=== PATIENT | male | born 1995 | race Caucasian/White ===

== ENCOUNTER 2019-11-07 08:58 | Emergency (ER) | payer OTHER ==
[~2019-11-07] VITALS: Ht 160 cm; Wt 68.0 kg
[2019-11-07] MEDS ORDERED: MULTIVITAMIN with MINERAL TABLET. PO ONE (09:15)
[2019-11-07] MEDS ORDERED: chlordiazePOXIDE HCL 25 MG CAPSULE PO ONE (09:15)
[2019-11-07] MEDS ORDERED: THIAMINE 100 MG TABLET. PO ONE (09:15)
[2019-11-07] MEDS ORDERED: FOLIC ACID 1 MG TABLET PO ONE (09:15)
[2019-11-07] MEDS ORDERED: MVI, ADULT NO.4 WITH VIT K 10 ML, THIAMINE INJ 100 MG, FOLIC ACID INJ 1 MG in IV NORMAL... IV ONE ×4 (09:30)
[2019-11-07 09:45] LABS: BASO # 0.1 x10^3/uL (0.0-0.2); BASO % 1 % (0-3); EOS % 0 % (0-3); HEMATOCRIT 45.9 % (39.0-53.0); HEMOGLOBIN 15.6 g/dL (13.0-17.5); LYMPH # 2.1 x10^3/uL (1.0-4.8); LYMPH % 27 % (24-48); MEAN CORPUSCULAR HEMOGLOBIN 32 pg (25-35); MEAN CORPUSCULAR HGB CONC 34 g/dL (31-37); MEAN CORPUSCULAR VOLUME 94 fL (79-100); MONO # 0.6 x10^3/uL (0.0-1.1); MONO % 7 % (0-9); NEUT # 4.9 x10^3uL (1.8-7.7); NEUT % 64 % (31-73); PLATELET COUNT 206 x10^3/uL (140-400); RED CELL DISTRIBUTION WIDTH 16.4 % (11.5-14.5); WHITE BLOOD COUNT 7.6 x10^3/uL (4.0-11.0)
[2019-11-07 09:53] LABS: CALCIUM 8.4 mg/dL (8.5-10.1); GFR 90.3; POTASSIUM 3.5 mmol/L (3.5-5.1)
[2019-11-07 09:58] LABS: ALBUMIN 3.9 g/dL (3.4-5.0); DIRECT BILIRUBIN 0.1 mg/dL (0.0-0.2); MAGNESIUM 1.8 mg/dL (1.8-2.4); TOTAL BILIRUBIN 0.4 mg/dL (0.2-1.0); TOTAL PROTEIN 8.4 g/dL (6.4-8.2)
[2019-11-07 12:00] VITALS: BP 139/67
[2019-11-07 12:29] LABS: BARBITURATES NEG (NEG); BENZODIAZEPINES NEG (NEG); CANNABINOIDS POS (NEG); COCAINE POS (NEG); METHADONE NEG (NEG); OPIATES NEG (NEG); PHENCYCLIDINE NEG (NEG)
[2019-11-07 12:31] LABS: AMPHETAMINE/METHAMPHETAMINE NEG (NEG)
[2019-11-07 12:35] LABS: BACTERIA,URINE 0 /HPF (0-FEW); BILIRUBIN,URINE NEG (NEG); CLARITY,URINE CLEAR; COLOR,URINE YELLOW; GLUCOSE,URINE NEG (NEG); NITRITE,URINE NEG (NEG); RBC,URINE OCC /HPF (0-2); UROBILINOGEN,URINE 0.2 mg/dL (0.2 mg/dL); WBC,URINE OCC /HPF (0-4)
[2019-11-07 12:36] LABS: HYALINE CASTS, URINE FEW /HPF
[2019-11-07] MEDS ORDERED: CHLO25CA9 PO (12:51)
--- NOTE | 2019-11-07 12:51 | PHYS DOC ---
Past History Past Medical History: Other Additional Past Medical Histor: alcoholism Alcohol Use: Heavy General Adult EDM: Chief Complaint: WITHDRAWAL HPI: HPI: Patient is a 24-year-old male who presents with complaint of symptoms of alcohol withdrawal. Patient states that he has been trying to stop drinking alcohol but is having symptoms of withdrawal. He states that he is not able to sleep due to the symptoms. Patient denies any suicidal or homicidal ideations. Patient sta georgina that he just needs some help getting off of the alcohol. [] Review of Systems: Review of Systems: Constitutional: Denies fever or chills Respiratory: Denies cough or shortness of breath Cardiovascular: Denies chest pain or edema GI: Denies abdominal pain. Complains of nausea without vomiting or diarrhea Integument: Denies rash Neurologic: Denies headache, focal weakness or sensory changes A full 10 point review of systems has been reviewed and is otherwise negative. Heart Score: Risk Factors: Risk Factors: DM, Current or recent (<one month) smoker, HTN, HLP, family history of CAD, obesity. Risk Scores: Score 0 - 3: 2.5% MACE over next 6 weeks - Discharge Home Score 4 - 6: 20.3% MACE over next 6 weeks - Admit for Clinical Observation Score 7 - 10: 72.7% MACE over next 6 weeks - Early Invasive Strategies Current Medications: Current Meds: Current Medications Medications (Trade) Dose Ordered Sig/Alec Start Time Stop Time Status Last Admin Dose Admin Chlordiazepoxide (Librium) 25 mg 1X ONCE 11/07/19 09:15 11/07/19 09:21 DC 11/07/19 09:24 25 MG Folic Acid (Folic Acid) 1 mg 1X ONCE 11/07/19 09:15 11/07/19 09:26 DC Multivitamins/ Calcium (Thera-M Plus) 1 tab 1X ONCE 11/07/19 09:15 11/07/19 09:26 DC Multivitamins/ Minerals 10 ml/ Thiamine HCl 100 mg/Folic Acid 1 mg/Sodium Chloride 1,011.2 ml @ 100 mls/ hr 1X ONCE 11/07/19 09:30 11/07/19 19:36 11/07/19 09:30 100 MLS/HR Thiamine HCl (Vitamin B-1) 100 mg 1X ONCE 11/07/19 09:15 11/07/19 09:26 DC Allergies: Allergies: Allergies Coded Allergies Type Severity Reaction Last Updated Verified Penicillins Allergy Unknown 11/07/19 Yes amoxicillin Allergy Unknown 11/07/19 Yes Physical Exam: PE: Constitutional: Well developed, well nourished, no acute distress, non-toxic appearance. [] HENT: Normocephalic, atraumatic, bilateral external ears normal, oropharynx moist, no oral exudates, nose normal. [] Eyes: PERRLA, EOMI, conjunctiva normal, no discharge. [] Neck: Normal range of motion, no tenderness, supple. [] Cardiovascular: Regular rate and rhythm [] Lungs & Thorax: Bilateral breath sounds clear to auscultation [] Abdomen: Bowel sounds normal, soft, no tenderness. [] Skin: Warm, dry, no erythema, no rash. [] Extremities: No tenderness, no cyanosis, no clubbing, ROM intact. [] Neurologic: Alert and oriented X 3, no focal deficits noted. [] Current Patient Data: Labs: Laboratory Tests Test 11/07/19 09:17 11/07/19 12:05 White Blood Count 7.6 x10^3/uL (4.0-11.0) Red Blood Count 4.90 x10^6/uL (4.30-5.70) Hemoglobin 15.6 g/dL (13.0-17.5) Hematocrit 45.9 % (39.0-53.0) Mean Corpuscular Volume 94 fL (79-100) Mean Corpuscular Hemoglobin 32 pg (25-35) Mean Corpuscular Hemoglobin Concent 34 g/dL (31-37) Red Cell Distribution Width 16.4 % (11.5-14.5) H Platelet Count 206 x10^3/uL (140-400) Neutrophils (%) (Auto) 64 % (31-73) Lymphocytes (%) (Auto) 27 % (24-48) Monocytes (%) (Auto) 7 % (0-9) Eosinophils (%) (Auto) 0 % (0-3) Basophils (%) (Auto) 1 % (0-3) Neutrophils # (Auto) 4.9 x10^3uL (1.8-7.7) Lymphocytes # (Auto) 2.1 x10^3/uL (1.0-4.8) Monocytes # (Auto) 0.6 x10^3/uL (0.0-1.1) Eosinophils # (Auto) 0.0 x10^3/uL (0.0-0.7) Basophils # (Auto) 0.1 x10^3/uL (0.0-0.2) Sodium Level 136 mmol/L (136-145) Potassium Level 3.5 mmol/L (3.5-5.1) Chloride Level 95 mmol/L (98-107) L Carbon Dioxide Level 22 mmol/L (21-32) Anion Gap 19 (6-14) H Blood Urea Nitrogen 16 mg/dL (8-26) Creatinine 1.0 mg/dL (0.7-1.3) Estimated GFR (Cockcroft-Gault) 90.3 Glucose Level 133 mg/dL (70-99) H Calcium Level 8.4 mg/dL (8.5-10.1) L Magnesium Level 1.8 mg/dL (1.8-2.4) Total Bilirubin 0.4 mg/dL (0.2-1.0) Direct Bilirubin 0.1 mg/dL (0.0-0.2) Aspartate Amino Transferase (AST) 326 U/L (15-37) H Alanine Aminotransferase (ALT) 204 U/L (16-63) H Alkaline Phosphatase 121 U/L (46-116) H Total Protein 8.4 g/dL (6.4-8.2) H Albumin 3.9 g/dL (3.4-5.0) Ethyl Alcohol Level 173 mg/dL (0-10) H Urine Collection Type Unknown Urine Color Yellow Urine Clarity Clear Urine pH 6.5 Urine Specific [place] 1.025 Urine Protein 100 mg/dl (NEG-TRACE) Urine Glucose (UA) Neg mg/dL (NEG) Urine Ketones (Stick) 80 mg/dL (NEG) Urine Blood Mod (NEG) Urine Nitrite Neg (NEG) Urine Bilirubin Neg (NEG) Urine Urobilinogen Dipstick 0.2 mg/dL (0.2 mg/dL) Urine Leukocyte Esterase Neg (NEG) Urine RBC Occ /HPF (0-2) Urine WBC Occ /HPF (0-4) Urine Bacteria 0 /HPF (0-FEW) Urine Hyaline Casts Few /HPF Urine Mucus Mod /LPF Urine Opiates Screen Neg (NEG) Urine Methadone Screen Neg (NEG) Urine Barbiturates Neg (NEG) Urine Phencyclidine Screen Neg (NEG) Urine Amphetamine/Methamphetamine Neg (NEG) Urine Benzodiazepines Screen Neg (NEG) Urine Cocaine Screen Pos (NEG) Urine Cannabinoids Screen Pos (NEG) Urine Ethyl Alcohol Pos (NEG) Vital Signs: Vital Signs Date Time Temp Pulse Resp B/P (MAP) Pulse Ox O2 Delivery O2 Flow Rate FiO2 11/07/19 12:00 106 16 139/67 (91) 97 Room Air 11/07/19 09:00 98.3 EKG: EKG: [] Radiology/Procedures: Radiology/Procedures: [] Course & Med Decision Making: Course & Med Decision Making Pertinent Labs and Imaging studies reviewed. (See chart for details) [] Dragon Disclaimer: Dragon Disclaimer: This electronic medical record was generated, in whole or in part, using a voice recognition dictation system. Departure Departure: Impression: Primary Impression: Alcohol dependence Qualified Codes: F10.20 - Alcohol dependence, uncomplicated Disposition: 01 HOME/RESIDENCE PRIOR TO ADM Condition: STABLE Referrals: PCP,NO (PCP) Patient Instructions: Alcohol Problems, Alcohol Withdrawal Scripts Chlordiazepoxide Hcl (CHLORDIAZEPOXIDE HCL) 25 Mg Capsule 25 MG PO TID PRN for WITHDRAWAL IRRITABILITY, #15 CAP Prov: YOSHI BABIN Jr. DO 11/07/19 YOSHI BABIN Jr. DO Nov 07, 2019 12:51
[2019-11-07] MEDS ORDERED: IV NORMAL SALINE 1,000ML 1,000 ML IV ONE (14:00)
== END 2019-11-07 16:00 | disposition home or self-care (01) ==
LOC: ER 08:58
DX: F10.20 Alcohol dependence, uncomplicated (principal); Z88.0 Allergy status to penicillin; Z88.1 Allergy status to other antibiotic agents; Y90.6 Blood alcohol level of 120-199 mg/100 ml
CPT/HCPCS: 36415; 80048; 80076; 80307; 81001; 83735; 85025; 96365; 96366; 96375; 99284; G0480; J2060; 96374; J7030